=== PATIENT | male | born 1975 | race Caucasian/White ===

== ENCOUNTER 2021-04-01 12:42 | Emergency (ER) | payer OTHER ==
[2021-04-01 13:31] LABS: HEMOGLOBIN 16.8 gm/dl (14.0-17.5); RED BLOOD COUNT 5.17 M/UL (4.20-5.50); WHITE BLOOD COUNT 13.4 K/UL (4.5-11.0)
[2021-04-01 14:00] LABS: BUN/CREATININE RATIO 18 (0-10)
[2021-04-01] MEDS ORDERED: BAYER CHEWABLE81 MG PO (15:36)
== END 2021-04-01 18:30 | disposition home or self-care (01) ==
LOC: ER1 12:42
PROVIDERS: Physician Assistant
DX: Z23 Encounter for immunization (principal); U07.1 COVID-19; E11.9 Type 2 diabetes mellitus without complications; F17.210 Nicotine dependence, cigarettes, uncomplicated; I10 Essential (primary) hypertension; Z88.0 Allergy status to penicillin
CPT/HCPCS: 80053; 85025; 99283; M0243

== ENCOUNTER → 2021-06-03 | Outpatient (CLI) | payer OTHER ==
[~2021-06-03] MED LIST: BAYER CHEWABLE81 MG PO
== END ==
LOC: KOH-I 13:06
DX: N50.89 Other specified disorders of the male genital organs (principal)
CPT/HCPCS: 76870

== ENCOUNTER → 2021-08-05 | Outpatient (CLI) | payer OTHER | LOC: KOH-I 09:32 | DX: M25.562 Pain in left knee (principal); M79.89 Other specified soft tissue disorders | CPT/HCPCS: 73562 ==